=== PATIENT | female | born 1990 | race Caucasian/White ===

== ENCOUNTER 2017-06-14 03:31 | Emergency (ER) | payer OTHER ==
[~2017-06-14] VITALS: Ht 162.6 cm; Wt 99.0 kg
[~2017-06-14 03:31] MED LIST: DENIES
[2017-06-14 03:52] VITALS: Ht 162.6 cm; Wt 99.0 kg
[2017-06-14] MEDS ORDERED: HYDROCODONE/APAP (5/325) TAB PO STA (05:11)
[2017-06-14] MEDS ORDERED: CIPROFLOXACIN 500 MG TAB PO STA (05:32)
[2017-06-14] MEDS ORDERED: CIPR500T4 PO (05:38)
--- NOTE | 2017-06-14 05:49 | ERD ---
ER Documentation Chief Complaint Date/Time DATE: 06/14/17 TIME: 05:48 Chief Complaint left ear pain x 4 days HPI This is a 26-year-old female presenting to the emergency department complaining of left ear pain for the past 4 days. Patient was diagnosed with otitis externa at a different hospital at [facility] and was given Cortisporin eardrops. Patient stated that it was not improving therefore she was given Augmentin yesterday. Patient states the pain is constant therefore she presents today, she has tried Tylenol Motrin without much relief. She denies any hearing loss, fevers ROS All systems reviewed and are negative except as per history of present illness. Medications Home Meds Active Scripts Ciprofloxacin Hcl* (Ciprofloxacin Hcl*) 500 Mg Tablet, 500 MG PO BID for 7 Days , TAB Prov:JOYCE LYNNE PA-C 06/14/17 Reported Medications [Denies] No Conflict Check 01/16/11 Allergies Allergies: Coded Allergies: No Known Allergies (Verified Allergy, Mild, 01/16/11) PMhx/Soc History of Surgery: No Anesthesia Reaction: No Hx Neurological Disorder: No Hx Respiratory Disorders: No Hx Cardiac Disorders: No Hx Psychiatric Problems: No Hx Miscellaneous Medical Probl: No Hx Alcohol Use: No Hx Substance Use: No Hx Tobacco Use: No Physical Exam Vitals Vital Signs Date Time Temp Pulse Resp B/P Pulse Ox O2 Delivery O2 Flow Rate FiO2 06/14/17 03:52 97.7 102 20 164/90 98 Physical Exam Const: Developed well-nourished no acute distress Head: Atraumatic Eyes: Normal Conjunctiva ENT: Gauze in the left ear canal Neck: Full range of motion..~ No meningismus. Resp: Clear to auscultation bilaterally Cardio: Regular rate and rhythm, no murmurs Abd: Soft, non tender, non distended. Normal bowel sounds Skin: No petechiae or rashes Back: No midline or flank tenderness Ext: No cyanosis, or edema Neur: Awake and alert Psych: Normal Mood and Affect Results 24 hrs Current Medications Medications (Trade) Dose Ordered Sig/Madelin Route PRN Reason Start Time Stop Time Status Last Admin Dose Admin Acetaminophen/ Hydrocodone Bitart ([place] (5/325)) 1 tab ONCE STAT PO 06/14/17 05:11 06/14/17 05:12 DC 06/14/17 05:30 Ciprofloxacin (Cipro) 500 mg ONCE STAT PO 06/14/17 05:32 06/14/17 05:33 DC 06/14/17 05:40 Procedures/MDM This is a 26-year-old female presenting to the emergency department with otitis externa, there was no evidence of mastoiditis or otitis media. Patient is already on Augmentin and Cortisporin. Patient has gauze placed in her ear canal , I discussed with her that she will need to keep that in place to prevent from cauliflower ear. I have given her prescription for Cipro I discussed with her to continue taking her other antibiotics as prescribed by her other physician. Discussed return to the emergency department for any worsening sinus symptoms. She understands and agrees with this plan Departure Diagnosis: Primary Impression: Otitis externa Condition: Stable Patient Instructions: External Ear Infection (Adult) Additional Instructions: FOLLOW UP WITH YOUR PRIMARY CARE PHYSICIAN TOMORROW.Return to this facility if you are not improving as expected. Take all medicines as directed. Return to this facility if you are not improving as expected. JOYCE LYNNE PA-C Jun 14, 2017 05:49
== END 2017-06-14 06:05 | disposition home or self-care (01) ==
LOC: FTE 03:31
DX: H60.92 Unspecified otitis externa, left ear (principal)
CPT/HCPCS: Z7610 ×2; 99283

== ENCOUNTER 2017-12-22 20:04 | Emergency (ER) | END 2017-12-23 00:31 | disposition home or self-care (01) ==

== ENCOUNTER 2018-01-14 16:06 | Emergency (ER) | END 2018-01-14 23:02 | disposition home or self-care (01) ==

== ENCOUNTER 2018-01-30 10:30 | Emergency (ER) | END 2018-01-30 13:41 | disposition home or self-care (01) ==

== ENCOUNTER 2018-02-25 10:38 | Emergency (ER) | END 2018-02-25 12:09 | disposition home or self-care (01) ==

== ENCOUNTER 2018-06-15 18:00 | Inpatient (IN) | END 2018-06-20 15:08 | disposition home or self-care (01) | DRG 765 ==

== ENCOUNTER 2019-07-09 11:53 | Emergency (ER) | payer OTHER ==
[~2019-07-09] VITALS: Ht 154.9 cm; Wt 90.2 kg
[~2019-07-09 11:53] MED LIST changes: +ALBU8.5H8 INH; +AZIT250T PO; -DENIES; +PNV11TAB PO; +PROM6.2515 PO
[2019-07-09 12:00] VITALS: BP 140/76; PULSE 84; RESP 18; Ht 154.9 cm; Wt 90.2 kg
== END 2019-07-09 12:36 | disposition home or self-care (01) ==
LOC: E/R 11:53
DX: R05 Cough (principal); Z20.818 Contact with and (suspected) exposure to other bacterial communicable diseases
CPT/HCPCS: 99283